=== PATIENT | male | born 1955 | race African-American/Black ===

== ENCOUNTER 2018-09-08 13:27 | Emergency (ER) | payer OTHER ==
[~2018-09-08] VITALS: Ht 172.7 cm; Wt 78.2 kg
[2018-09-08] MEDS ORDERED: MULT-1224 PEG (13:45)
[2018-09-08] MEDS ORDERED: [UNRECOGNIZED DRUG - CODE] PEG (13:45)
[2018-09-08] MEDS ORDERED: KETOROLAC TROMETHAMINE 10 MG TABLET PO ONE (14:45)
[2018-09-08 14:59] VITALS: BP 148/85
== END 2018-09-08 15:07 | disposition home or self-care (01) ==
LOC: EMS 13:27
DX: K04.7 Periapical abscess without sinus (principal); F12.90 Cannabis use, unspecified, uncomplicated; Z79.899 Other long term (current) drug therapy

== ENCOUNTER 2019-02-13 14:45 | Emergency (ER) | payer SELFPAY ==
[~2019-02-13] VITALS: Ht 172.7 cm; Wt 79.5 kg
[~2019-02-13 14:45] MED LIST: MULT-1224 PEG; [UNRECOGNIZED DRUG - CODE] PEG
[2019-02-13] MEDS ORDERED: MULT-1279 PO (14:58)
[2019-02-13] MEDS ORDERED: IBUPROFEN 800 MG TABLET PO ONE (16:45)
[2019-02-13 17:05] VITALS: BP 130/81
== END 2019-02-13 17:28 | disposition home or self-care (01) ==
LOC: EMS 14:50
DX: K04.7 Periapical abscess without sinus (principal); F12.90 Cannabis use, unspecified, uncomplicated